=== PATIENT | female | born 1980 | race Caucasian/White ===

== ENCOUNTER 2023-02-07 16:00 | Outpatient (CLI) | payer OTHER ==
[2023-02-07 18:43] VITALS: BP 108/68; PULSE 96; RESP 16; TEMP 98.3
--- NOTE | 2023-02-08 07:14 | P.MSEPDOC ---
Presenting Problems - Arrival Data Date of Arrival on Unit: 02/07/23 Time of Arrival on Unit: 16:00 Mode of Transport: Ambulatory - Complaint OB-Reason for Admission/Chief Complaint: Other Comment: discharge Medical History - Information : 5 Para: 3 Term: 2 : 1 Abortions: Spontaneous or Elective: 1 Number of Living Children: 3 - Gestational Age Gestational Age by NALLELY (wks/days): 32 Weeks and 1 Days - History Complications: Prior , Prior , Smoker Review of Systems - Review of Systems Constitutional: No problems Breast: No problems ENT: No problems Cardiovascular: No problems Respiratory: No problems Gastrointestinal: No problems Genitourinary: No problems Musculoskeletal: No problems Neurological: No problems Skin: No problems Vital Signs - Temperature Temperature: 98.3 F Temperature Source: Oral - Pulse Left Brachial Pulse Rate: 96 Pulse Assessment Method: Automatic Cuff - Respirations Respiratory Rate: 16 Oxygen Delivery Method: Room Air O2 Sat by Pulse Oximetry: 100 - Blood Pressure Left Arm Blood Pressure: 108/68 Blood Pressure Mean: 81 Blood Pressure Source: Automatic Cuff Medical Screen Scoring - Assessment - Baby A Baseline FHR: 120 Heart Rate - NICHD Category: Category I (Normal) Physician Notification - Physician Notified Physician Notified Date: 02/07/23 Physician Notified Time: 16:50 Physician: Fausto Corrigan New Order Received: Yes - Notification Comment Comment: Dr. Corrigan at bedside, pt refusing spec exam due to previous trauma, no contractions Maternal Triage Index - Urgent/Priority 2 Urgent Priority 2: Yes Provider Notified: Fausto Corrigan Provider Notified Time: 16:50 Criteria Met for Priority 2: 32.1 weeks, discharge Disposition - Disposition OB Disposition: Triage, Discharge to home, Written follow up instructions reviewed Discharge Date: 02/07/23 Discharge Time: 16:57 I agree with the RN Medical Screening Exam: Yes Case reviewed; plan agreed upon as documented in EMR&OBIX.: Yes Diagnosis: RELATED CONDITIONS, UNSPECIFIED, THIRD TRIMESTER (This patient is a 42-year-old 5 para 3 female estimated gestational age 32 weeks by stated EDC who presents to triage with complaints of vaginal discharge. Patient's had no care here in no records are available at this time. She reports that she gets care with a physician at [facility]. She indicates that her is complicated by a short cervix for which they were following her with transvaginal ultrasounds. She indicates that they do not do pelvic exams because apparently a previous physician caused from a tumor cervix and vaginal bleeding that required hospitalization and application of nitrite sticks. Patient presents with a complaint of vaginal discharge. She's having no bleeding or contractions or leaking of fluid. heart tones are category 1 and no contractions are palpable or visible. I had a long discussion with the patient and her Hartner and recommended that since she is considered high risk and already has established care with a primary physician at [facility] is in her best interest to contact them in the future for concerns, especially in light of the fact that we do not have any records on her. She understood and acknowledged. I advised her to contact her physician this evening and to see if they wanted to see her in the office sooner or come to their triage. At this time there is no evidence of maternal compromise. There is no evidence of labor. Patient was discharged home in stable condition.)
== END 2023-02-07 16:57 | disposition home or self-care (01) ==
LOC: FBPOP 16:00
PROVIDERS: ATTEND Obstetrics & Gynecology
DX: O47.03 False labor before 37 completed weeks of gestation, third trimester (principal); Z3A.32 32 weeks gestation of pregnancy
CPT/HCPCS: 59025; G0463; 99213